=== PATIENT | female | born 2000 | race Caucasian/White ===

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

== ENCOUNTER → 2022-01-23 15:26 | Outpatient (BNVA) | payer MEDICAID, SELFPAY | PROVIDERS: PCP Nurse Practitioner; Visit Provider Registered Nurse Neonatal Intensive Care | DX: J02.9 Acute pharyngitis, unspecified (principal) | CPT/HCPCS: 87880 ==

== ENCOUNTER → 2022-02-24 07:10 | Outpatient (BNVA) | payer OTHER, MEDICAID, SELFPAY | PROVIDERS: PCP Nurse Practitioner; Visit Provider Psychiatry & Neurology Psychiatry | DX: F32.5 Major depressive disorder, single episode, in full remission (principal); F90.0 Attention-deficit hyperactivity disorder, predominantly inattentive type; F60.3 Borderline personality disorder | CPT/HCPCS: 99213 ==

== ENCOUNTER → 2022-05-16 15:36 | Outpatient (BNVA) | payer MEDICAID, SELFPAY | PROVIDERS: PCP Nurse Practitioner; Visit Provider Registered Nurse Neonatal Intensive Care | DX: M79.642 Pain in left hand (principal) | CPT/HCPCS: 73130 ==

== ENCOUNTER 2022-06-17 23:11 | Emergency (ER) | payer MEDICAID, SELFPAY ==
[2022-06-17 23:15] VITALS: BP 144/83; PULSE 88; RESP 18; TEMP 36.8; O2SAT 99; BMI 43.9
--- NOTE | 2022-06-18 02:19 | PC.NURSE ---
Pt. family up to nurse station several times to ask how long this is going to take.
== END 2022-06-18 02:26 | disposition left against medical advice (07) ==
PROVIDERS: Emergency Provider Family Medicine; PCP Nurse Practitioner
DX: Z53.21 Procedure and treatment not carried out due to patient leaving prior to being seen by health care provider (principal); R20.0 Anesthesia of skin

== ENCOUNTER 2022-06-20 15:43 | Outpatient (CLI) | payer MEDICAID, SELFPAY ==
--- NOTE | 2022-06-20 16:03 | XR_ITS ---
WS: [id number] Exam: XR wrist LT min 3V* [id number] Date/Time of Exam: 06/20/2022 4:12 PM Reason For Exam: M25.531 - Pain in right wrist There are no fractures, soft tissue swelling, or unusual calcifications. The wrist shows normal bony alignment. There is no irregularity of the bony architecture. XR/XR wrist LT min 3V* [id number] IMPRESSION: Negative left wrist.
--- NOTE | 2022-06-20 16:03 | XR_ITS ---
WS: [id number] Exam: XR wrist RT min 3V* [id number] Date/Time of Exam: 06/20/2022 4:12 PM Reason For Exam: M25.531 - Pain in right wrist There are no fractures, soft tissue swelling, or unusual calcifications. The wrist shows normal bony alignment. There is no irregularity of the bony architecture. XR/XR wrist RT min 3V* [id number] IMPRESSION: Negative right wrist.
[2022-06-20 16:51] LABS: 25 Hydroxy Vitamin D 27 ng/mL (30-100)
== END 2022-06-20 15:44 | disposition home or self-care (01) ==
PROVIDERS: PCP Nurse Practitioner; Visit Provider Nurse Practitioner
DX: R25.2 Cramp and spasm (principal); M25.531 Pain in right wrist; M25.532 Pain in left wrist
CPT/HCPCS: 36415; 73110; 82306

== ENCOUNTER 2022-07-17 06:00 | Outpatient (RCR) | payer MEDICAID, SELFPAY | END 2022-07-21 23:59 | disposition home or self-care (01) | LOC: SOT 06:00 | PROVIDERS: PCP Nurse Practitioner; Visit Provider Nurse Practitioner | DX: G56.01 Carpal tunnel syndrome, right upper limb (principal); G56.02 Carpal tunnel syndrome, left upper limb | CPT/HCPCS: 97018; 97110; 97140; 97165 ==

== ENCOUNTER 2022-07-22 06:00 | Outpatient (RCR) | payer MEDICAID, SELFPAY | END 2022-08-21 23:59 | disposition home or self-care (01) | LOC: SOT 06:00 | PROVIDERS: PCP Nurse Practitioner; Visit Provider Nurse Practitioner | DX: G56.01 Carpal tunnel syndrome, right upper limb (principal); G56.02 Carpal tunnel syndrome, left upper limb | CPT/HCPCS: 97018; 97110; 97140 ==

== ENCOUNTER 2022-08-02 16:57 | Outpatient (CLI) | payer MEDICAID, SELFPAY ==
--- NOTE | 2022-08-02 17:19 | XRR_ITS ---
PROCEDURE INFORMATION: Exam: XR Abdomen Exam date and time: 08/02/2022 5:23 PM Age: 22 years old Clinical indication: Abdominal pain; Generalized; Patient HX: Upset stomach after eating greasy food, pain in upper chest for a month. Feels like acid reflux; Additional info: R10.13 - epigastric pain TECHNIQUE: Imaging protocol: Radiologic exam of the abdomen. Views: Frontal supine view of the abdomen. 1 View. COMPARISON: CR XR lumbar spine 2-3V* [id number] 08/07/2021 6:54 PM FINDINGS: Gastrointestinal tract: Normal. No bowel dilation. Bones/joints: Unremarkable. XR/XR KUB [id number] IMPRESSION: No acute findings.
[2022-08-02 17:35] LABS: Erythrocyte Sedimentation Rate 32 mm/hr (0-15)
[2022-08-02 18:03] LABS: C Reactive Protein 34.9 mg/L (0.0-4.9); Ferritin 93 ng/mL (15-150)
[2022-08-02 18:20] LABS: 25 Hydroxy Vitamin D > 100 ng/mL (30-100)
== END 2022-08-02 16:58 | disposition home or self-care (01) ==
PROVIDERS: PCP Nurse Practitioner; Visit Provider Nurse Practitioner
DX: R10.13 Epigastric pain (principal); R23.1 Pallor; E55.9 Vitamin D deficiency, unspecified
CPT/HCPCS: 36415; 74018; 82306; 82728; 85651; 86140

== ENCOUNTER 2023-02-23 15:14 | Outpatient (CLI) | payer MEDICAID, SELFPAY ==
--- NOTE | 2023-02-23 15:25 | XR_ITS ---
WS: [id number] XR KUB [id number] REASON FOR EXAM: R10.9 - Unspecified abdominal pain FINDINGS: No free air or retroperitoneal air. Unremarkable bowel gas pattern No organomegaly or mass identified. No significant calcification seen. XR/XR KUB [id number] IMPRESSION: No acute abnormality.
[2023-02-23 16:34] LABS: Basophils # 0.1 10^3/uL (0.0-0.1); Basophils % 0.6 %; Eosinophils # 0.1 10^3/uL (0.0-0.8); Eosinophils % 0.6 %; Hematocrit 36.4 % (37.0-47.0); Hemoglobin 11.4 g/dL (11.5-15.3); Lymphocytes % 28.8 %; Mean Corpuscular HGB Conc 31.3 g/dL (30.0-36.0); Mean Corpuscular Hemoglobin 26.7 pg (28.0-34.0); Mean Corpuscular Volume 85.2 fl (81-99); Mean Platelet Volume 10.2 fL (7.4-10.4); Monocytes # 0.7 10^3/uL (0.2-0.9); Monocytes % 6.3 %; Neutrophils # 6.61 10^3/uL (1.8-8.0); Neutrophils % 63.5 %; Nucleated Red Blood Cells % 0 %; Platelet Count 365 10^3/cmm (130-400); Red Blood Count 4.27 10^6/uL (4.1-5.3); Red Cell Distribution Width 14.7 % (12.1-15.1); White Blood Count 10.4 10^3/uL (4.5-13.0)
[2023-02-23 16:37] LABS: Erythrocyte Sedimentation Rate 34 mm/hr (0-15)
[2023-02-23 16:55] LABS: Estmated Average Glucose 128; Hemoglobin A1C 6.1 % (4.0-6.0)
[2023-02-23 19:08] LABS: H. Pylori IgG Antibody Negative (Negative)
[2023-02-23 22:01] LABS: Alanine Aminotransferase 20 U/L (0-33); Albumin Level 3.9 g/dL (3.5-5.2); Alkaline Phosphatase 92 U/L (35-105); Aspartate Amino Transferase 15 U/L (0-32); Blood Urea Nitrogen 14 mg/dL (6-20); C Reactive Protein 30.8 mg/L (0.0-4.9); Calcium 9.2 mg/dL (8.5-10.5); Carbon Dioxide 22 mmol/L (22-29); Chloride 102 mmol/L (98-107); Cholesterol 164 mg/dL (0-200); Free T4 Free Thyroxine 1.12 ng/dL (0.82-1.77); Globulin 2.5 g/dL (1.3-4.6); Glomerular Filtration Rate 127.5 mL/min (90-130); Glucose 129 mg/dL (65-115); HDL Cholesterol 41 mg/dL (60-100); LDL Cholesterol Calculated 73 mg/dL (50-129); LDL HDL Ratio 1.78 RATIO (0.00-3.22); Lipase 18 U/L (13-60); Osmolality Calculated 284 mOsm/kg (285-295); Sodium 136 mmol/L (136-145); Thyroid Stimulating Hormone 2.64 uIU/mL (0.27-4.20); Total Bilirubin 0.2 mg/dL (0.15-1.2); Total Protein 6.4 g/dL (6.6-8.7); Triglycerides 248 mg/dL (0-150)
[2023-03-01 14:49] LABS: Vit D 1,25 (Oh)2, Total 51 pg/mL (18-72); Vit D2 1,25 (Oh)2 <8 pg/mL; Vit D3 1,25 (Oh)2 51 pg/mL
== END 2023-02-23 15:15 | disposition home or self-care (01) ==
PROVIDERS: PCP Nurse Practitioner; Visit Provider Nurse Practitioner
DX: Z00.00 Encounter for general adult medical examination without abnormal findings (principal); E55.9 Vitamin D deficiency, unspecified; R10.9 Unspecified abdominal pain; E11.9 Type 2 diabetes mellitus without complications
CPT/HCPCS: 36415; 74018; 80053; 80061; 81000; 82652; 83036; 83690; 84439; 84443; 85025; 85651; 86140; 86677; 87086

== ENCOUNTER 2023-03-23 07:29 | Outpatient (CLI) | payer MEDICAID, SELFPAY ==
--- NOTE | 2023-03-23 07:00 | US_ITS ---
WS: [id number] Exam: US gall bladder [id number] Date/Time of Exam: 03/23/2023 7:33 AM Reason For Exam: R10.13 - Epigastric pain The gallbladder is unremarkable. No sign of cholelithiasis. Common bile duct is not dilated and measu res 0.26 cm at greatest diameter. The liver is not enlarged measuring 16 cm at greatest dimension. No rmal-appearing right kidney measures 11.27 x 4 x 5.5 cm. The pancreas is unremarkable. The abdominal aorta is normal in caliber. The IVC is patent. Portal venous flow is hepatopedal. US/US gall bladder [id number] IMPRESSION: 1. Normal gallbladder ultrasound.
== END 2023-03-23 07:30 | disposition home or self-care (01) ==
LOC: RAD 07:31
PROVIDERS: PCP Nurse Practitioner; Visit Provider Nurse Practitioner
DX: R10.13 Epigastric pain (principal)
CPT/HCPCS: 76705

== ENCOUNTER 2023-03-26 15:45 | Outpatient (CLI) | payer MEDICAID, SELFPAY ==
--- NOTE | 2023-03-26 15:59 | XRR_ITS ---
PROCEDURE INFORMATION: Exam: XR Left Ankle Exam date and time: 03/26/2023 4:02 PM Age: 22 years old Clinical indication: Bilateral; Patient HX: Pain in both ankles for a month; Additional info: M25.572 - pain in left ankle and joints of left foot TECHNIQUE: Imaging protocol: Radiologic exam of the left ankle. Views: 3 or more views. COMPARISON: No relevant prior studies available. FINDINGS: Bones/joints: Small calcified heel spur. Soft tissues: Normal. XR/XR ankle LT min 3V* [id number] IMPRESSION: Small calcified heel spur.
--- NOTE | 2023-03-26 15:59 | XRR_ITS ---
PROCEDURE INFORMATION: Exam: XR Right Ankle Exam date and time: 03/26/2023 4:02 PM Age: 22 years old Clinical indication: Bilateral; Patient HX: Pain in both ankles for a month; Additional info: M21.171 - varus deformity, not elsewhere classified, righ. . . TECHNIQUE: Imaging protocol: Radiologic exam of the right ankle. Views: 3 or more views. COMPARISON: No relevant prior studies available. FINDINGS: Bones/joints: Normal. Soft tissues: Normal. XR/XR ankle RT min 3V* [id number] IMPRESSION: No acute findings.
== END 2023-03-26 15:46 | disposition home or self-care (01) ==
PROVIDERS: PCP Nurse Practitioner; Visit Provider Nurse Practitioner
DX: M25.572 Pain in left ankle and joints of left foot (principal); M25.571 Pain in right ankle and joints of right foot; M21.171 Varus deformity, not elsewhere classified, right ankle; M77.32 Calcaneal spur, left foot; M72.2 Plantar fascial fibromatosis; M21.172 Varus deformity, not elsewhere classified, left ankle
CPT/HCPCS: 73610

== ENCOUNTER → 2023-05-31 15:14 | Outpatient (BNVA) | payer MEDICAID, SELFPAY | PROVIDERS: PCP Nurse Practitioner; Visit Provider Nurse Practitioner Women's Health | DX: Z51.81 Encounter for therapeutic drug level monitoring (principal); Z00.00 Encounter for general adult medical examination without abnormal findings | CPT/HCPCS: 84132; 85025 ==

== ENCOUNTER 2023-06-12 15:53 | Outpatient (RCR) | payer MEDICAID, SELFPAY | END 2023-06-21 23:59 | disposition home or self-care (01) | LOC: SPT 15:53 | PROVIDERS: Visit Provider Nurse Practitioner | DX: M72.2 Plantar fascial fibromatosis (principal) | CPT/HCPCS: 97110; 97161 ==

== ENCOUNTER 2023-06-17 18:56 | Emergency (ER) | payer MEDICAID, SELFPAY ==
[2023-06-17 19:07] VITALS: BP 127/83; PULSE 83; RESP 14; TEMP 36.6; O2SAT 96
[2023-06-17 19:32] VITALS: BP 125/70; PULSE 90; RESP 16; O2SAT 97
--- NOTE | 2023-06-17 19:35 | PC.NURSE ---
Pt states that she has not been taking antibiotics for UTI and has not been seen for UTI yet. Pt is not currently experiencing gallbladder s/s.
[2023-06-17 19:37] LABS: HCG Qualitative Urine. Negative (Negative)
[2023-06-17 20:02] LABS: Urine Color Orange (Yellow)
[2023-06-17 20:03] LABS: Add Urine Culture? No; Add Urine Microscopic? YES; Bacteria Urine TRACE /hpf; Bilirubin Urine 2+ (Negative); Blood Urine Neg (Negative); Glucose Urine UA Norm (Normal); Ketones Urine Negative (Negative); Leukocyte Esterase Urine Negative (Negative); Nitrate Urine Negative (Negative); Protein Urine Neg (Negative); Squamous Epithelial Cell Urine 0-4 /hpf (0-5); Urine Appearance Clear (CLEAR); Urobilinogen Urine 8 mg/dL (Negative); pH Urine 5 (5-7)
--- NOTE | 2023-06-17 20:36 | ED_ITS ---
HPI - Female Genitourinary General: Chief complaint: Urogenital-Female Stated complaint: peeing orange, lower abdomin pain Time Seen by Provider: 06/17/23 19:29 Source: patient Mode of arrival: ambulatory Limitations: no limitations History of Present Illness: Patient presents to the emergency department today for evaluation treatment of dysuria. Patient denies any significant history of urinary tract infections but has had 1 in the past that started very similarly. She denies vaginal discharge or vaginal bleeding. She denies fevers. Patient has GI symptoms but, reports that for months now she has been having issues with her gallbladder and currently has a referral into GI specialty in [place] from her primary care doctor who is aware of her recurrent issues. Patient indicates discoloration of her urine but, did start taking Azo this morning. Review of Systems General: Reports: 10 or more systems reviewed and unremarkable except in HPI and below PFSH ED PFSH: Medical History Diabetes mellitus Diagnosed in 2020 with an elevated hemoglobin [id number] up with [facility] pediatric endocrinology in [place]-Dr. Her No pertinent past medical history Denies asthma, hypertension, seizures, DVT/PE PCP: Dr. Willett PCOS (polycystic ovarian syndrome) Diagnosed in 2020 based on oligomenorrhea with increased hair growth and acne Psychiatric care Surgical History History of tonsillectomy At the age of 19 S/P wisdom tooth extraction Performed in 2020 Family History Mother Hypertension Denies family history of Colon cancer Ovarian cancer Diabetes Heart disease Hyperlipidemia Breast cancer Uterine cancer Thyroid condition Stroke Social History Smoking and tobacco status: never smoked Household members: family Marital status: Single Highest education level completed: Associate Degree: Occupational, Technical, Vocational Program Current occupational status: employed Current gender identity: Female Physical Exam Const: COMMON NORMALS: no acute distress, average body habitus, patient oriented x3 and alert HENMT: COMMON NORMALS: normocephalic, atraumatic, hearing grossly normal bilaterally and moist oral mucous membranes HEAD & SCALP: normocephalic and atraumatic Eye: COMMON NORMALS: Equal, round and reactive pupils present, EOMs intact bilaterally and conjunctivae normal CONJUNCTIVA: Yes conjunctivae normal PUPIL: Yes Equal, round and reactive pupils present Neck/C-Spine: COMMON NORMALS: no JVD Lymph: LYMPHATIC: no lymphadenopathy noted Resp: COMMON NORMALS: normal respiratory effort, No retractions and No use of accessory muscles Cardio: COMMON NORMALS: no JVD and regular rate RATE: regular rate Extremity: COMMON NORMALS: normal to inspection, full ROM and capillary refill normal Neuro: COMMON NORMALS: patient oriented x3 SENSORIUM/ORIENTATION: Yes alert Psych: COMMON NORMALS: mental status grossly normal, cooperative, normal affect, speech normal and activity/motor behavior normal SPEECH: Yes normal speech Course Vital Signs: Vital signs: Vital Signs Temperature 97.9 F 06/17/23 20:43 Pulse Rate 97 06/17/23 20:43 Respiratory Rate 16 06/17/23 20:43 Blood Pressure 131/94 06/17/23 20:43 Pulse Oximetry 95 06/17/23 20:43 Oxygen Delivery Me thod Room Air 06/17/23 19:07 MDM - Female Medical Decision Making Patient's urinalysis shows trace bacteria but, I was concerned about the increased bilirubin. I was not aware of the patient's previous GI issues until speaking with her regarding the findings of the increased bilirubin. It is very likely that the increased bilirubin is secondary to her issues with her gallbladder but I did encourage her to mention it to her primary care physician in the morning so she can have follow-up and a recheck of her urine. Given that patient has had similar symptoms prior to onset of urinary tract infection in the past we will start treat with Macrobid however, we did also discuss the possibility of urethritis. While the patient indicates she has not been wearing tight clothing or changed any soaps or lotions recently, explained it is still possible that she has irritation of the urethral opening. She is to watch for any new onset of vaginal bleeding, vaginal discharge, abdominal pains, or fever. If these occur she needs to be seen and reevaluated. Patient verbalizes understanding and agreement to the treatment plan. Differential Diagnosis Unlikely calculus of kidney (Urethritis, urinary tract infection, pyelonephritis) Lab Data Laboratory Results HCG, Qual Negative (Negative) 06/17/23 19:20 Urine Color [place] (Yellow) A 06/17/23 19:20 Urine Appearance Clear (CLEAR) 06/17/23 19:20 Urine pH 5 (5-7) 06/17/23 19:20 Ur Specific [place] 1.020 (1.005-1.030) 06/17/23 19:20 Urine Protein Neg (Negative) 06/17/23 19:20 Urine Glucose (UA) Norm (Normal) 06/17/23 19:20 Urine Ketones Negative (Negative) 06/17/23 19:20 Urine Blood Neg (Negative) 06/17/23 19:20 Urine Nitrate Negative (Negative) 06/17/23 19:20 Urine Bilirubin 2+ (Negative) H 06/17/23 19:20 Urine Urobilinogen 8 mg/dL (Negative) H 06/17/23 19:20 Ur Leukocyte Esterase Negative (Negative) 06/17/23 19:20 Urine RBC None /hpf (0-2) 06/17/23 19:20 Urine WBC None /hpf (0-5) 06/17/23 19:20 Ur Squamous Epith Cells 0-4 /hpf (0-5) H 06/17/23 19:20 Amorphous Sediment Not Reportable 06/17/23 19:20 Urine Bacteria Trace /hpf (NONE) 06/17/23 19:20 Discharge Plan Discharge Patient Disposition: Home Clinical Impression: Dysuria Condition: Stable Prescriptions: New nitrofurantoin macrocrystal 100 mg capsule 100 mg PO BID 5 Days Qty: 10 0RF Rx Instructions: must administer with a meal/food No Action spironolactone 100 mg tablet 100 mg PO DAILY 90 Days Qty: 90 0RF norethindrone-e.estradiol-iron [5 (28)] 1.5 mg-30 mcg (21)/75 mg (7) tablet 1 tab PO DAILY Qty: 168 3RF Rx Instructions: take as directed fluoxetine 40 mg capsule 40 mg PO QAM Qty: 30 11RF (DME) new insoles See Rx Instructions .Route .MEDSUPPLY Qty: 1 0RF Rx Instructions: As directed Vyvanse 50 mg capsule 50 mg PO QAM 30 Days Qty: 30 0RF dicyclomine 10 mg capsule 10 mg PO TID 30 Days Qty: 90 0RF Discharge Orders: Discharge ED (Routine); Ordered 06/17/23 Ordered By: Manuela Salguero Referrals: Brenda Damico, [employer]- [Primary Care Provider] - Activity Restrictions/Additional Instructions: Urinalysis today reveals no concerns for significant urinary tract infection though there is some trace bacteria that is found in your specimen. Given your history of similar symptoms prior to onset of UTI, we will go ahead and initiate antibiotic treatment while we continue to culture your urine for the next couple of days. As we discussed, there is findings of bilirubin/urobilinogen in your urine sample. However, after discussion regarding months of gallbladder issues and continued evaluation through GI, I do think this finding is related to your recent gallbladder issues. However, I do think is a good idea you reach out to your primary care doctor to make them aware of this finding in your urine today. I would also encourage you to consider taking an [id number] cqmu-utd-eikcmgr PPI such as Prilosec, Nexium, or Prevacid. They are all generic off brand options of the same medication which works just as well. Take as indicated on the box. This can often help with some of the symptoms you are experiencing with the nausea and vomiting with epigastric and refluxing pain you seem to be dealing with for a while. Also, I think your GI doctor would like to know you have already tried these medications when you are able to get in for your appointment. Coding Level of Care Code ED Release Specialist for Betsey Mosley
[2023-06-17] MEDS: nitrofurantoin SR (BID) 100 mg Capsule PO (20:40)
[2023-06-17 20:41] VITALS: BP 131/94; PULSE 97; RESP 16; O2SAT 95
[2023-06-17 20:43] VITALS: BP 131/94; PULSE 97; RESP 16; TEMP 36.6; O2SAT 95
== END 2023-06-17 20:44 | disposition home or self-care (01) ==
PROVIDERS: Emergency Provider Physician Assistant; PCP Nurse Practitioner
DX: R30.0 Dysuria (principal); E11.9 Type 2 diabetes mellitus without complications
CPT/HCPCS: 81001; 81025; 99283

== ENCOUNTER 2023-06-22 06:00 | Outpatient (RCR) | payer MEDICAID, SELFPAY | END 2023-07-21 23:59 | disposition home or self-care (01) | LOC: SPT 06:00 | PROVIDERS: PCP Nurse Practitioner; Visit Provider Nurse Practitioner | DX: M72.2 Plantar fascial fibromatosis (principal) | CPT/HCPCS: 97110 ==

== ENCOUNTER 2023-08-14 13:00 | Emergency (ER) | payer MEDICAID, SELFPAY ==
--- NOTE | 2023-08-14 13:01 | XR_ITS ---
WS: [id number] Exam: XR chest 1V portable [id number] Date/Time of Exam: 08/14/2023 1:15 PM Reason For Exam: sob No priors. Findings: The lungs are clear and fully expanded. Costophrenic angles are sharp. No infiltrates. Bronchovascula r relief appears normal. Cardiac silhouette is unremarkable. Bony elements are intact. IMPRESSION: Unremarkable chest radiograph.
--- NOTE | 2023-08-14 13:08 | ECG_ITS ---
[facility] Test Date: 2023-08-14 Pat Name: Diana Hart Department: Room: Gender: Female Baking Assistant: : 2000 Requested By: Stanley Russell Order Number: [id number] Mary MD: Larry Rivas M.D. Measurements Intervals [place] Rate: 90 P: 58 ME: 181 QRS: 47 QRSD: 102 T: 55 QT: 347 QTc: 425 Interpretive Statements SINUS RHYTHM No previous ECG available for comparison Electronically Signed On 08-14-2023 16:07:07 CDT by Larry Rivas M.D. [id number]
[2023-08-14 13:11] VITALS: BP 153/84; PULSE 88; RESP 18; TEMP 36.8; O2SAT 97; BMI 44.1
--- NOTE | 2023-08-14 13:28 | W.ED.ABDPA2 ---
HPI - Abdominal Pain General: Chief Complaint: Abdominal Pain Stated Complaint: chest pain/SOB Time Seen by Provider: 08/14/23 13:02 Source: patient Mode of arrival: ambulatory Limitations: no limitations History of Present Illness: Patient is a 23-year-old female here with a complaint of epigastric/chest pain. She states she has had symptoms intermittently for a few months now. Patient states she sees a gas distribution plant operator who has her on omeprazole for possible acid reflux. She states she has not noticed an improvement of symptoms after starting the omeprazole. She states her symptoms seem to be worse after eating specific foods namely broccoli and other vegetables. She states she gets pain to her epigastric region that radiates upward into her substernal chest. She states she has nausea but has not had any episodes of emesis. She reports normal bowel movements. Denies yellowing to her skin or eyes. She is not complaining of right upper quadrant pain but states her friends/family have told her her symptoms could be related to gallbladder disease. Patient states she will often go days where she is asymptomatic. There is no exertional component. She is not short of breath and never has any difficulty breathing. MD elicited complaint: abdominal pain Pertinent past history: none Onset (ago): month(s) Pain Consistency: intermittent Location: Chest and Epigastric Severity: moderate Pain scale (0-10): 5 Quality: aching and burning Radiation: chest Migration to: no migration Exacerbating factors: eating Relieving factors: nothing Associated Symptoms: Reports nausea; Denies chills, GI cramping, diarrhea, dysuria, fever(s), hematochezia, hematemesis, melena, syncope and vomiting Related Data: Patient : No Review of Systems Const: Denies: fever(s), chills, body aches, fatigue or malaise Eyes: Denies: change in vision or blurry vision Card: Reports: chest pain; Denies: palpitations, irregular heart rhythm, edema, swelling of feet/ankles, lightheadedness, syncope, pre-syncope, dyspnea on exertion, orthopnea, leg pain with exertion or acrocyanosis Resp: Denies: dyspnea, productive cough or pain on inspiration GI: Reports: abdominal pain and nausea; Denies: vomiting, hematemesis, diarrhea, GI cramping, hematochezia or melena : Denies: flank pain or dysuria Musc: Denies: neck pain, back pain, extremity pain, extremity swelling or joint pain Skin/Breast: Denies: rash Neuro: Denies: headache(s), numbness in extremities, weakness in extremities, sensory changes or dizziness PFSH ED PFSH: Medical History Diabetes mellitus Diagnosed in 2020 with an elevated hemoglobin [id number] up with [facility] pediatric endocrinology in [place]-Dr. Her No pertinent past medical history Denies asthma, hypertension, seizures, DVT/PE PCP: Dr. Willett PCOS (polycystic ovarian syndrome) Diagnosed in 2020 based on oligomenorrhea with increased hair growth and acne Psychiatric care Surgical History History of tonsillectomy At the age of 19 S/P wisdom tooth extraction Performed in 2020 Family History Mother Hypertension Denies family history of Colon cancer Ovarian cancer Diabetes Heart disease Hyperlipidemia Breast cancer Uterine cancer Thyroid disease Stroke Social History Smoking and tobacco/nicotine status: never used tobacco/nicotine Household members: family Marital status: Single Highest education level completed: Associate Degree: Occupational, Technical, Vocational Program Current occupational status: employed Current gender identity: Female Physical Exam Const: COMMON NORMALS: no acute distress, patient oriented x3, no limitations, alert and well nourished GENERAL APPEARANCE: cooperative NUTRITIONAL APPEARANCE: obese morbidly obese (BMI of 44) ORIENTATION/CONSCIOUSNESS: Yes awake, Yes oriented to person, Yes oriented to place and Yes oriented to time HENMT: COMMON NORMALS: normocephalic and atraumatic HEAD & SCALP: normocephalic and atraumatic Eye: COMMON NORMALS: no scleral icterus Neck/C-Spine: COMMON NORMALS: full ROM, no lymphadenopathy, supple and no meningeal signs Chest: COMMONS NORMALS: normal inspection of the chest and normal palpation of entire chest wall Resp: COMMON NORMALS: normal respiratory effort and clear to auscultation bilaterally AUSCULTATION: clear to auscultation bilaterally Cardio: COMMON NORMALS: regular rate and regular rhythm RATE: regular rate RHYTHM: regular rhythm GI: COMMON NORMALS: Normal to inspection, nondistended, normoactive bowel sounds present, Soft to palpation, No hepatosplenomegaly present and no masses INSPECTION: Yes normal to inspection PALPATION: Yes Soft to palpation, Yes Tenderness to palpation present (GI) (epigastric), No Guarding due to palpation present (GI), No Rigid due to palpation and Yes No hepatosplenomegaly present : COMMON NORMALS: Yes no CVA tenderness BLADDER/KIDNEY EXAM: Yes no CVA tenderness Back/Pelvis: COMMON NORMALS: no CVA tenderness and thoracic and lumbar spine normal to inspection Extremity: COMMON NORMALS: normal to inspection GENERAL: Yes normal exam except as noted Neuro: COMMON NORMALS: patient oriented x3, moves all extremities, no focal motor deficits, no sensory deficits noted and gait normal SENSORIUM/ORIENTATION: Yes alert, Yes oriented to person, Yes oriented to place and Yes oriented to time MENINGEAL SIGNS: Yes no meningeal signs Skin: COMMON NORMALS: no rashes or lesions noted GENERAL SKIN EXAM: no rashes or lesions noted Course Vital Signs: Vital signs: Vital Signs Temperature 98.2 F 08/14/23 13:11 Pulse Rate 88 08/14/23 13:11 Respiratory Rate 18 08/14/23 13:11 Blood Pressure 153/84 08/14/23 13:11 Pulse Oximetry 97 08/14/23 13:11 Oxygen Delivery Me thod Room Air 08/14/23 13:11 MDM - Abdominal Pain Medical Decision Making Patient states she got quite a bit of relief after her GI cocktail. She appears in no acute distress. Her vital signs are stable. Blood work is unremarkable. I will switch her Omeprazole to Protonix and placed her on an H2 roby as well. Recommend she follow-up with her gas distribution plant operator. Return to ED precautions given. Lab Data 08/14/23 13:49 08/14/23 13:49 Labs/Radiology: Laboratory Results WBC 7.28 10^3/uL (3.29-11.43) 08/14/23 13:49 RBC 4.77 10^6/uL (3.85-5.65) 08/14/23 13:49 Hgb 12.60 g/dL (11.27-16.99) 08/14/23 13:49 Hct 41.1 % (36-47) 08/14/23 13:49 MCV 86.2 fl (85-98) 08/14/23 13:49 MCH 26.4 pg (27-33) L 08/14/23 13:49 MCHC 30.7 g/dL (30-55) 08/14/23 13:49 RDW 14.4 % (12.1-15.1) 08/14/23 13:49 Plt Count 347 10^3/cmm (157-399) 08/14/23 13:49 MPV 10.1 fL (7.4-10.4) 08/14/23 13:49 Neut % (Auto) 64.0 % 08/14/23 13:49 Lymph % (Auto) 26.8 % 08/14/23 13:49 [place] % (Auto) 8.2 % 08/14/23 13:49 Eos % (Auto) 0.4 % 08/14/23 13:49 Baso % (Auto) 0.5 % 08/14/23 13:49 Neut # (Auto) 4.65 10^3/uL (1.8-7.7) 08/14/23 13:49 Lymph # (Auto) 2.0 10^3/uL (0.8-4.8) 08/14/23 13:49 [place] # (Auto) 0.6 10^3/uL (0.2-0.9) 08/14/23 13:49 Eos # (Auto) 0.0 10^3/uL (0.0-0.8) 08/14/23 13:49 Baso # (Auto) 0.0 10^3/uL (0.0-0.1) 08/14/23 13:49 Nucleated RBC % (auto) 0 % 08/14/23 13:49 Nucleated RBCs # 0.0 /100WBC 08/14/23 13:49 Sodium 138 mmol/L (136-145) 08/14/23 13:49 Potassium 3.7 mmol/L (3.5-5.1) 08/14/23 13:49 Chloride 104 mmol/L (98-107) 08/14/23 13:49 Carbon Dioxide 24 mmol/L (22-29) 08/14/23 13:49 Anion Gap 13.7 (5-19) 08/14/23 13:49 BUN 13 mg/dL (6-20) 08/14/23 13:49 Creatinine 0.5 mg/dL (0.5-0.9) 08/14/23 13:49 GFR Calculation 155.7 mL/min (90-130) H 08/14/23 13:49 Glucose 116 mg/dL (65-115) H 08/14/23 13:49 Calculated Osmolality 287 mOsm/kg (285-295) 08/14/23 13:49 Calcium 9.2 mg/dL (8.5-10.5) 08/14/23 13:49 Total Bilirubin 0.2 mg/dL (0.15-1.2) 08/14/23 13:49 AST 12 U/L (0-32) 08/14/23 13:49 ALT 17 U/L (0-33) 08/14/23 13:49 Alkaline Phosphatase 82 U/L (35-105) 08/14/23 13:49 Total Protein 6.9 g/dL (6.6-8.7) 08/14/23 13:49 Albumin 4.0 g/dL (3.5-5.2) 08/14/23 13:49 Globulin 2.9 g/dL (1.3-4.6) 08/14/23 13:49 Lipase 21 U/L (13-60) 08/14/23 13:49 HCG, Qual Negative (Negative) 08/14/23 13:49 No radiology studies performed this visit Discharge Plan Discharge Patient Disposition: Home Clinical Impression: Chest pain due to GERD Condition: Stable Prescriptions: New Protonix 40 mg tablet,delayed release (DR/EC) 40 mg PO DAILY 28 Days Qty: 28 0RF Acid Controller 10 mg tablet 10 mg PO DAILY Qty: 30 0RF Discontinued omeprazole 10 mg capsule,delayed release(DR/EC) 10 mg PO DAILY No Action spironolactone 100 mg tablet 100 mg PO DAILY 90 Days Qty: 90 0RF norethindrone-e.estradiol-iron [ FE 1.5/30 (28)] 1.5 mg-30 mcg (21)/75 mg (7) tablet 1 tab PO DAILY Qty: 168 3RF Rx Instructions: take as directed fluoxetine 40 mg capsule 40 mg PO QAM Qty: 30 11RF Vyvanse 50 mg capsule 50 mg PO QAM 30 Days Qty: 30 0RF (DME) new insoles See Rx Instructions .Route .MEDSUPPLY Qty: 1 0RF Rx Instructions: As directed Discharge Orders: Discharge ED (Routine); Ordered 08/14/23 Ordered By: Kira Ernandez Referrals: Brenda Damico FNP-JARON [Primary Care Provider] - Activity Restrictions/Additional Instructions: As we discussed please follow up with her gas distribution plant operator. Coding Level of Care Code ED Clinical Informatics Spec for Betsey Mosley
[2023-08-14] MEDS: lidocaine 2% viscous 15 ML, aluminum-mag hydrox-simethicon 30 ML, sucralfate oral liq 1 GM PO (13:47)
[2023-08-14 14:02] LABS: Basophils % 0.5 %; Eosinophils % 0.4 %; Hematocrit 41.1 % (36-47); Lymphocytes % 26.8 %; Mean Corpuscular HGB Conc 30.7 g/dL (30-55); Mean Corpuscular Hemoglobin 26.4 pg (27-33); Mean Corpuscular Volume 86.2 fl (85-98); Mean Platelet Volume 10.1 fL (7.4-10.4); Monocytes # 0.6 10^3/uL (0.2-0.9); Monocytes % 8.2 %; Neutrophils # 4.65 10^3/uL (1.8-7.7); Nucleated Red Blood Cells % 0 %; Platelet Count 347 10^3/cmm (157-399); Red Blood Count 4.77 10^6/uL (3.85-5.65); Red Cell Distribution Width 14.4 % (12.1-15.1); White Blood Count 7.28 10^3/uL (3.29-11.43)
[2023-08-14 14:18] LABS: HCG, Serum Qual Negative (Negative)
[2023-08-14 14:22] LABS: Alanine Aminotransferase 17 U/L (0-33); Alkaline Phosphatase 82 U/L (35-105); Anion Gap 13.7 (5-19); Aspartate Amino Transferase 12 U/L (0-32); Blood Urea Nitrogen 13 mg/dL (6-20); Calcium 9.2 mg/dL (8.5-10.5); Carbon Dioxide 24 mmol/L (22-29); Chloride 104 mmol/L (98-107); Globulin 2.9 g/dL (1.3-4.6); Glomerular Filtration Rate 155.7 mL/min (90-130); Glucose 116 mg/dL (65-115); Lipase 21 U/L (13-60); Osmolality Calculated 287 mOsm/kg (285-295); Potassium 3.7 mmol/L (3.5-5.1); Sodium 138 mmol/L (136-145); Total Bilirubin 0.2 mg/dL (0.15-1.2); Total Protein 6.9 g/dL (6.6-8.7)
== END 2023-08-14 14:42 | disposition home or self-care (01) ==
PROVIDERS: Emergency Provider Physician Assistant; PCP Nurse Practitioner
DX: K21.9 Gastro-esophageal reflux disease without esophagitis (principal); E11.9 Type 2 diabetes mellitus without complications
CPT/HCPCS: 36415; 71045; 80053; 83690; 84703; 85025; 93005; 99285

== ENCOUNTER 2023-08-16 21:22 | Emergency (ER) | payer MEDICAID, SELFPAY ==
[2023-08-16 21:33] VITALS: BP 123/84; PULSE 75; RESP 16; TEMP 36.9; O2SAT 98; BMI 44.1
[2023-08-16 22:53] LABS: Basophils # 0.1 10^3/uL (0.0-0.1); Basophils % 0.7 %; Eosinophils # 0.1 10^3/uL (0.0-0.8); Hematocrit 43.3 % (36-47); Lymphocytes # 2.7 10^3/uL (0.8-4.8); Lymphocytes % 40.1 %; Mean Corpuscular HGB Conc 31.4 g/dL (30-55); Mean Corpuscular Volume 86.1 fl (85-98); Mean Platelet Volume 9.9 fL (7.4-10.4); Monocytes # 0.7 10^3/uL (0.2-0.9); Monocytes % 10.2 %; Neutrophils # 3.23 10^3/uL (1.8-7.7); Neutrophils % 47.9 %; Nucleated Red Blood Cells % 0 %; Platelet Count 375 10^3/cmm (157-399); Red Blood Count 5.03 10^6/uL (3.85-5.65); Red Cell Distribution Width 14.3 % (12.1-15.1); White Blood Count 6.76 10^3/uL (3.29-11.43)
--- NOTE | 2023-08-16 22:55 | CTR_ITS ---
PROCEDURE INFORMATION: Exam: CT Head With Contrast Exam date and time: 08/16/2023 11:35 PM Age: 23 years old Clinical indication: Pain; Dizziness and visual disturbance; Headache; Patient HX: RT sided PUENTE with photophobia and dizziness. ; Additional info: Headache, worst of life, photophobia, 2.5days, mostly right sided, TECHNIQUE: Imaging protocol: Computed tomography of the head with intravenous contrast. Radiation optimization: All CT scans at this facility use at least one of these dose optimization techniques: automated exposure control; mA and/or kV adjustment per patient size (includes targeted exams where dose is matched to clinical indication); or iterative reconstruction. Contrast material: OMNI 350; Contrast volume: 100 ml; Contrast route: INTRAVENOUS (IV); REPORTING DATA: Count of CT and Cardiac NM exams in prior 12 months: This patient has received 0 known CTs and 0 known cardiac nuclear medicine studies in the 12 months prior to the current study. COMPARISON: CR XR cervical spine 3V* [id number] 02/07/2020 3:32 PM RADIATION DOSE METRICS: Total DLP (mGy-cm): 2138.34 FINDINGS: Brain: Unremarkable white matter. No mass effect. No abnormal enhancing lesions. Cerebral ventricles: Unremarkable. No ventriculomegaly. Bones/joints: Unremarkable. No acute fracture. Paranasal sinuses: Visualized sinuses are unremarkable. No fluid levels. Mastoid air cells: Visualized mastoid air cells are well aerated. Soft tissues: Unremarkable. CT/CT head w con [id number] IMPRESSION: No acute intracranial abnormality.
--- NOTE | 2023-08-16 22:58 | ED_ITS ---
HPI - Headache General: Chief Complaint: Headache Stated Complaint: dizzy, senitivity to light Time Seen by Provider: 08/16/23 22:16 Source: patient Mode of arrival: ambulatory Limitations: no limitations History of Present Illness: Patient presents to the emergency department today for evaluation treatment of complaints of headache. Patient reports that about 2 and half days ago she was seen and evaluated and given a GI cocktail. She states she noticed onset of her headache sometime after that which has not improved with treatment. She states she has been taking Excedrin without noticeable improvement of her symptoms. She states headache is felt primarily deep inside the head and radiates primarily on the right side. She indicates photophobia. She has had nausea but no vomiting. She indicates some neck pain but denies fever. She states she is staying well-hydrated and denies large intake of caffeine. She does report that this is the worst headache she has ever had. No previous diagnoses of migraines. Review of Systems General: Reports: 10 or more systems reviewed and unremarkable except in HPI and below PFSH ED PFSH: Medical History Diabetes mellitus Diagnosed in 2020 with an elevated hemoglobin [id number] up with [facility] pediatric endocrinology in [place]-Dr. Her No pertinent past medical history Denies asthma, hypertension, seizures, DVT/PE PCP: Dr. Willett PCOS (polycystic ovarian syndrome) Diagnosed in 2020 based on oligomenorrhea with increased hair growth and acne Psychiatric care Surgical History History of tonsillectomy At the age of 19 S/P wisdom tooth extraction Performed in 2020 Family History Mother Hypertension Denies family history of Colon cancer Ovarian cancer Diabetes Heart disease Hyperlipidemia Breast cancer Uterine cancer Thyroid disease Stroke Social History Smoking and tobacco/nicotine status: never used tobacco/nicotine Household members: family Marital status: Single Highest education level completed: Associate Degree: Occupational, Technical, Vocational Program Current occupational status: employed Current gender identity: Female Physical Exam Const: COMMON NORMALS: no acute distress, patient oriented x3, no limitations and alert HENMT: COMMON NORMALS: normocephalic, hearing grossly normal bilaterally, external ears normal, Normal external nose present, Normal nasal mucous membranes and turbinates present, moist oral mucous membranes and oropharynx normal HEAD & SCALP: normocephalic NOSE: Normal external nose present and Normal nasal mucous membranes and turbinates present EXTERNAL EAR: Yes external ears normal Eye: COMMON NORMALS: Equal, round and reactive pupils present, EOMs intact bilaterally and conjunctivae normal CONJUNCTIVA: Yes conjunctivae normal PUPIL: Yes Equal, round and reactive pupils present Neck/C-Spine: COMMON NORMALS: full ROM and no meningeal signs Lymph: LYMPHATIC: no lymphadenopathy noted Resp: COMMON NORMALS: normal respiratory effort, No retractions and No use of accessory muscles Cardio: COMMON NORMALS: regular rate and regular rhythm RATE: regular rate RHYTHM: regular rhythm : COMMON NORMALS: Yes no CVA tenderness BLADDER/KIDNEY EXAM: Yes no CVA tenderness Back/Pelvis: COMMON NORMALS: no CVA tenderness, thoracic and lumbar spine normal to inspection and thoraco-lumbar ROM normal Extremity: COMMON NORMALS: normal to inspection, full ROM and no pedal edema NARRATIVE EXTREMITY EXAM: Patient is independently ambulatory weightbearing in the ER. Neuro: COMMON NORMALS: patient oriented x3 SENSORIUM/ORIENTATION: Yes alert MENINGEAL SIGNS: Yes no meningeal signs CRANIAL NERVES: Yes CN normal except as noted SPEECH: speech normal GAIT: Yes Normal gait present Skin: COMMON NORMALS: no rashes or lesions noted and turgor normal GENERAL SKIN EXAM: no rashes or lesions noted and turgor normal Course Vital Signs: Vital signs: Vital Signs Temperature 98.5 F 08/16/23 21:33 Pulse Rate 80 08/17/23 01:08 Respiratory Rate 16 08/17/23 00:08 Blood Pressure 125/72 08/17/23 01:08 Pulse Oximetry 98 08/17/23 01:08 MDM - Headache Medical Decision Making On initial examination, no acute findings were appreciated. Patient mostly sits in the room with her eyes closed and holds her head in her right hand. Patient is still able to answer all of her own questioning. She demonstrates full range of motion of the neck without concerns of meningeal signs. Vital signs are stable without fever, tachycardia, or hypertension. All of the patient's lab work is unremarkable. No signs of abnormal urinalysis findings. Given that she reports this is the worst headache she is ever had and, has had no headache prev iously like this, we did do a CT scan. CT scan revealed no acute abnormalities. Patient was given a migraine cocktail here in the emergency department and on rechecking the patient for reassessment of pain, patient was found to be completely asleep. I was able to wake the patient up and discussed with her that all of her laboratory and imaging today is negative for acute concerns. Patient was given antinausea medicine for home with encouragement to continue taking headache medication and stay hydrated. I gave her off work tomorrow so she can rest, hydrate, and treat. She is to have follow-up with her primary care doctor at the beginning of next week to discuss the possibility of new on set migraines. Otherwise, strict return precautions through the weekend were given for any acute worsening or change in condition. Patient verbalized understanding and agreement to the treatment plan. Differential Diagnosis Likely migraine and headache; Unlikely subarachnoid hemorrhage, meningitis or sinusitis Lab Data 08/16/23 22:46 08/16/23 22:[address] 08/16/23 22:55 IMPRESSION: No acute intracranial abnormality. Laboratory Results WBC 6.76 10^3/uL (3.29-11.43) 08/16/23 22:46 RBC 5.03 10^6/uL (3.85-5.65) 08/16/23 22:46 Hgb 13.60 g/dL (11.27-16.99) 08/16/23 22:46 Hct 43.3 % (36-47) 08/16/23 22:46 MCV 86.1 fl (85-98) 08/16/23 22:46 MCH 27.0 pg (27-33) 08/16/23 22:46 MCHC 31.4 g/dL (30-55) 08/16/23 22:46 RDW 14.3 % (12.1-15.1) 08/16/23 22:46 Plt Count 375 10^3/cmm (157-399) 08/16/23 22:46 MPV 9.9 fL (7.4-10.4) 08/16/23 22:46 Neut % (Auto) 47.9 % 08/16/23 22:46 Lymph % (Auto) 40.1 % 08/16/23 22:46 Turner % (Auto) 10.2 % 08/16/23 22:46 Eos % (Auto) 1.0 % 08/16/23 22:46 Baso % (Auto) 0.7 % 08/16/23 22:46 Neut # (Auto) 3.23 10^3/uL (1.8-7.7) 08/16/23 22:46 Lymph # (Auto) 2.7 10^3/uL (0.8-4.8) 08/16/23 22:46 Turner # (Auto) 0.7 10^3/uL (0.2-0.9) 08/16/23 22:46 Eos # (Auto) 0.1 10^3/uL (0.0-0.8) 08/16/23 22:46 Baso # (Auto) 0.1 10^3/uL (0.0-0.1) 08/16/23 22:46 Nucleated RBC % (auto) 0 % 08/16/23 22:46 Nucleated RBCs # 0.0 /100WBC 08/16/23 22:46 Sodium 139 mmol/L (136-145) 08/16/23 22:46 Potassium 3.9 mmol/L (3.5-5.1) 08/16/23 22:46 Chloride 104 mmol/L (98-107) 08/16/23 22:46 Carbon Dioxide 26 mmol/L (22-29) 08/16/23 22:46 Anion Gap 12.9 (5-19) 08/16/23 22:46 BUN 12 mg/dL (6-20) 08/16/23 22:46 Creatinine 0.6 mg/dL (0.5-0.9) 08/16/23 22:46 GFR Calculation 126.2 mL/min (90-130) 08/16/23 22:46 Glucose 99 mg/dL (65-115) 08/16/23 22:46 Calculated Osmolality 288 mOsm/kg (285-295) 08/16/23 22:46 Calcium 9.7 mg/dL (8.5-10.5) 08/16/23 22:46 Total Bilirubin 0.2 mg/dL (0.15-1.2) 08/16/23 22:46 AST 13 U/L (0-32) 08/16/23 22:46 ALT 18 U/L (0-33) 08/16/23 22:46 Alkaline Phosphatase 93 U/L (35-105) 08/16/23 22:46 Total Protein 7.4 g/dL (6.6-8.7) 08/16/23 22:46 Albumin 4.4 g/dL (3.5-5.2) 08/16/23 22:46 Globulin 3.0 g/dL (1.3-4.6) 08/16/23 22:46 HCG, Qual Negative (Negative) 08/17/23 00:01 Urine Color Yellow (Yellow) 08/17/23 00:01 Urine Appearance Clear (CLEAR) 08/17/23 00:01 Urine pH 5 (5-7) 08/17/23 00:01 Ur Specific [place] 1.015 (1.005-1.030) 08/17/23 00:01 Urine Protein Neg (Negative) 08/17/23 00:01 Urine Glucose (UA) Norm (Normal) 08/17/23 00:01 Urine Ketones Negative (Negative) 08/17/23 00:01 Urine Blood Neg (Negative) 08/17/23 00:01 Urine Nitrate Negative (Negative) 08/17/23 00:01 Urine Bilirubin Neg (Negative) 08/17/23 00:01 Urine Urobilinogen Neg mg/dL (Negative) 08/17/23 00:01 Ur Leukocyte Esterase Negative (Negative) 08/17/23 00:01 All radiology interpretation(s) finalized by discharge Discharge Plan Discharge Patient Disposition: Home Clinical Impression: Headache Condition: Stable Prescriptions: New ondansetron 4 mg tablet,disintegrating 4 mg PO Q8H 5 Days Qty: 15 0RF No Action spironolactone 100 mg tablet 100 mg PO DAILY 90 Days Qty: 90 0RF norethindrone-e.estradiol-iron [ ()] 1.5 mg-30 mcg (21)/75 mg (7) tablet 1 tab PO DAILY Qty: 168 3RF Rx Instructions: take as directed fluoxetine 40 mg capsule 40 mg PO QAM Qty: 30 11RF Vyvanse 50 mg capsule 50 mg PO QAM 30 Days Qty: 30 0RF (DME) new insoles See Rx Instructions .Route .MEDSUPPLY Qty: 1 0RF Rx Instructions: As directed Protonix 40 mg tablet,delayed release (DR/EC) 40 mg PO DAILY 28 Days Qty: 28 0RF Acid Controller 10 mg tablet 10 mg PO DAILY Qty: 30 0RF Discharge Orders: Discharge ED (Routine); Ordered 08/17/23 Ordered By: Manuela Salguero Discharge Diet: Usual diet Discharge Activity: Increase activity as tolerated Patient Instructions: Headache - Migraine (Adult), Acute Headache (ED) Activity Restrictions/Additional Instructions: Imaging today revealed no signs of acute abnormalities intracranially. Appears to be no signs of injury and no signs of masses or lesions. Your lab work is completely normal as well as your urinalysis. I have provided you antinausea medication. I encourage you to continue to stay well-hydrated and rest. You may also apply a cold pack to the base of your skull or forehead to help with discomfort. We recommend resting in cool, quiet, and dark environments. Continue to take Excedrin Migraine but, would also encourage you to take a 25 mg Benadryl at the same time to help enhance the effects. If you do not have any noticeable improvement in your headache over the next day or 2 or, have acute worsening including profuse vomiting, change or loss of vision or severe dizziness without ability to walk you need to be seen and reevaluated here in the emergency department. Otherwise, we do recommend a follow-up appointment with your primary care doctor at the beginning of the week to discuss the possibility of new onset migraines. Stand Alone Forms: Work/School Release Coding Level of Care Code ED Blueprint Clerk for Betsey Mosley
[2023-08-16 23:08] LABS: Alanine Aminotransferase 18 U/L (0-33); Albumin Level 4.4 g/dL (3.5-5.2); Alkaline Phosphatase 93 U/L (35-105); Anion Gap 12.9 (5-19); Aspartate Amino Transferase 13 U/L (0-32); Blood Urea Nitrogen 12 mg/dL (6-20); Calcium 9.7 mg/dL (8.5-10.5); Carbon Dioxide 26 mmol/L (22-29); Chloride 104 mmol/L (98-107); Glomerular Filtration Rate 126.2 mL/min (90-130); Glucose 99 mg/dL (65-115); Osmolality Calculated 288 mOsm/kg (285-295); Potassium 3.9 mmol/L (3.5-5.1); Sodium 139 mmol/L (136-145); Total Bilirubin 0.2 mg/dL (0.15-1.2); Total Protein 7.4 g/dL (6.6-8.7)
[2023-08-16] MEDS: iohexol 350 mg/mL 500 mL Btl (per mL) IV (23:40)
[2023-08-16] MEDS: sodium chloride 0.9% 1,000 ML 999 ML IV (23:51)
[2023-08-16] MEDS: metoclopramide 5 mg/mL SDV 2 mL 10 MG IVP (23:58)
[2023-08-17] MEDS: diphenhydrAMINE 50 mg/mL SDV 1mL IVP
[2023-08-17] MEDS: ketorolac 30 mg/mL INJ IVP (00:02)
[2023-08-17 00:08] VITALS: BP 148/92; PULSE 68; RESP 16; O2SAT 95
[2023-08-17 00:19] LABS: Add Urine Microscopic? NO; Charge for UA Resulting for Rev
[2023-08-17 00:22] LABS: Bilirubin Urine Neg (Negative); Blood Urine Neg (Negative); Glucose Urine UA Norm (Normal); Ketones Urine Negative (Negative); Leukocyte Esterase Urine Negative (Negative); Nitrate Urine Negative (Negative); Protein Urine Neg (Negative); Specific Gravity, Urine 1.015 (1.005-1.030); Urine Appearance Clear (CLEAR); Urine Color Yellow (Yellow); Urobilinogen Urine Neg (Negative); pH Urine 5 (5-7)
[2023-08-17 00:25] LABS: HCG Qualitative Urine. Negative (Negative)
[2023-08-17 01:08] VITALS: BP 125/72; PULSE 80; O2SAT 98
== END 2023-08-17 01:10 | disposition home or self-care (01) ==
PROVIDERS: Emergency Provider Physician Assistant
DX: R51.9 Headache, unspecified (principal); E11.9 Type 2 diabetes mellitus without complications
CPT/HCPCS: 36415; 70460; 80053; 81003; 81025; 85025; 96374; 96375; 99285; J1200; J1885; J2765; J7030; Q9967

== ENCOUNTER 2023-11-19 21:45 | Emergency (ER) | payer MEDICAID, SELFPAY ==
[2023-11-19 21:58] VITALS: BP 142/85; PULSE 94; RESP 14; TEMP 36.7; O2SAT 99
[2023-11-19 23:03] LABS: HCG Qualitative Urine. Negative (Negative)
[2023-11-19 23:35] LABS: Add Urine Microscopic? YES; Bilirubin Urine Neg (Negative); Blood Urine 3+ (Negative); Glucose Urine UA Norm (Normal); Ketones Urine 1+ (Negative); Leukocyte Esterase Urine 2+ (Negative); Nitrate Urine Negative (Negative); Protein Urine 3+ (Negative); RBC Urine >100 /hpf (0-2); Squamous Epithelial Cell Urine 0-4 /hpf (0-5); Urine Appearance Cloudy (CLEAR); Urine Color Red (Yellow); Urobilinogen Urine Neg (Negative); WBC Urine 40-55 /hpf (0-5); pH Urine 6 (5-7)
[2023-11-19 23:36] LABS: Add Urine Culture? Yes; Bacteria Urine 2+ /hpf
[2023-11-20] MEDS: nitrofurantoin SR (BID) 100 mg Capsule PO (00:19)
--- NOTE | 2023-11-20 00:19 | PC.NURSE ---
Macrobid was given to pt before dc'd my provider. I spoke with provider, verbal order to not give the other antibiotic at this time
--- NOTE | 2023-11-20 00:28 | W.ED.FEMALGU ---
HPI - Female Genitourinary General: Chief complaint: Urogenital-Female Stated complaint: Back Pain\Hurts to Urinate Time Seen by Provider: 11/19/23 22:07 Source: patient Mode of arrival: ambulatory Limitations: no limitations History of Present Illness: Patient presents emergency department today for evaluation treatment of low back pain and dysuria. Patient states she had low back pain starting couple of days ago but thought it was because of work. However, she has continued to have low back pain and today due to having dysuria. She also says her urine has a slight red tinge to it. She has not had vomiting, mid back pain, or fever. Chart review shows previous urine cultures without bacterial growth to refer to. Review of Systems General: Reports: 10 or more systems reviewed and unremarkable except in HPI and below PFSH ED PFSH: Medical History Psychiatric care Diabetes mellitus Diagnosed in 2020 with an elevated hemoglobin [id number] up with [facility] pediatric endocrinology in [place]-Dr. Her PCOS (polycystic ovarian syndrome) Diagnosed in 2020 based on oligomenorrhea with increased hair growth and acne No pertinent past medical history Denies asthma, hypertension, seizures, DVT/PE PCP: Dr. Willett Surgical History S/P wisdom tooth extraction Performed in 2020 History of tonsillectomy At the age of 19 Family History Mother Hypertension Denies family history of Colon cancer Ovarian cancer Diabetes Heart disease Hyperlipidemia Breast cancer Uterine cancer Thyroid disease Stroke Social History Smoking and tobacco/nicotine status: never used tobacco/nicotine Household members: family Marital status: Single Highest education level completed: Associate Degree: Occupational, Technical, Vocational Program Current occupational status: employed Current gender identity: Female Physical Exam Const: COMMON NORMALS: no acute distress, average body habitus, patient oriented x3 and alert OTHER: Patient is pleasant, social. Answers her own history. Vital signs stable. HENMT: COMMON NORMALS: normocephalic, atraumatic, hearing grossly normal bilaterally and moist oral mucous membranes HEAD & SCALP: normocephalic and atraumatic Eye: COMMON NORMALS: Equal, round and reactive pupils present, EOMs intact bilaterally and conjunctivae normal CONJUNCTIVA: Yes conjunctivae normal PUPIL: Yes Equal, round and reactive pupils present Neck/C-Spine: COMMON NORMALS: no JVD Lymph: LYMPHATIC: no lymphadenopathy noted Resp: COMMON NORMALS: normal respiratory effort, No retractions and No use of accessory muscles Cardio: COMMON NORMALS: no JVD and regular rate RATE: regular rate Back/Pelvis: COMMON NORMALS: thoraco-lumbar ROM normal Extremity: COMMON NORMALS: normal to inspection, full ROM and capillary refill normal OTHER: Patient is independently ambulatory and weightbearing here in the emergency department. Neuro: COMMON NORMALS: patient oriented x3 SENSORIUM/ORIENTATION: Yes alert Psych: COMMON NORMALS: mental status grossly normal, cooperative, normal affect, speech normal and activity/motor behavior normal SPEECH: Yes normal speech Course Vital Signs: Vital signs: Vital Signs Temperature 98.0 F 11/19/23 21:58 Pulse Rate 94 11/19/23 21:58 Respiratory Rate 14 11/19/23 21:58 Blood Pressure 142/85 11/19/23 21:58 Pulse Oximetry 99 11/19/23 21:58 Oxygen Delivery Me thod Room Air 11/19/23 21:58 MDM - Female Medical Decision Making Patient urinalysis is consistent with urinary tract infection. We will culture her urine over the next 48 hours to determine proper antibiotic coverage. Until then, we will initiate treatment here in the emergency department. Originally, I had ordered Macrobid to be given however, when I went to send a prescription to the pharmacy I noticed that Macrobid was not on formulary. When I went back to try and switch out the Macrobid to be given here in the emergency department over to Omnicef, nursing indicated they had already provided the medication in the room. I had also already sent Omnicef to the pharmacy at that time. Patient can take the Macrobid provided from the emergency department tonight and lease picker Omnicef to continue in the morning. She is encouraged to continue pushing her fluids and to carefully monitor her symptoms. She should be seen and reevaluated for any change or worsening in recommend a recheck urinalysis after course of antibiotics is complete to assure full resolution of infection. Patient verbalizes understanding and agreement to the treatment plan. Differential Diagnosis Likely abdominal pain; Unlikely acute appendicitis, calculus of kidney, constipation, diverticulitis, gastroenteritis, pancreatitis or small bowel obstruction Lab Data Laboratory Results HCG, Qual Negative (Negative) 11/19/23 22:56 Urine Color Red (Yellow) A 11/19/23 22:56 Urine Appearance Cloudy (CLEAR) A 11/19/23 22:56 Urine pH 6 (5-7) 11/19/23 22:56 Ur Specific [place] 1.010 (1.005-1.030) 11/19/23 22:56 Urine Protein 3+ (Negative) H 11/19/23 22:56 Urine Glucose (UA) Norm (Normal) 11/19/23 22:56 Urine Ketones 1+ (Negative) H 11/19/23 22:56 Urine Blood 3+ (Negative) H 11/19/23 22:56 Urine Nitrate Negative (Negative) 11/19/23 22:56 Urine Bilirubin Neg (Negative) 11/19/23 22:56 Urine Urobilinogen Neg mg/dL (Negative) 11/19/23 22:56 Ur Leukocyte Esterase 2+ (Negative) H 11/19/23 22:56 Urine RBC >100 /hpf (0-2) H 11/19/23 22:56 Urine WBC 40-55 /hpf (0-5) H 11/19/23 22:56 Ur Squamous Epith Cells 0-4 /hpf (0-5) H 11/19/23 22:56 Amorphous Sediment Not Reportable 11/19/23 22:56 Urine Bacteria 2+ /hpf (NONE) H 11/19/23 22:56 No radiology studies performed this visit Discharge Plan Discharge Patient Disposition: Home Clinical Impression: Urinary tract infection Condition: Stable Prescriptions: New cefdinir 300 mg capsule 300 mg PO BID 10 Days Qty: 20 0RF No Action spironolactone 100 mg tablet 100 mg PO DAILY 90 Days Qty: 90 0RF norethindrone-e.estradiol-iron [June FE 1.5/30 (28)] 1.5 mg-30 mcg (21)/75 mg (7) tablet 1 tab PO DAILY Qty: 168 3RF Rx Instructions: take as directed omeprazole 40 mg capsule,delayed release(DR/EC) 40 mg PO DAILY fluoxetine 40 mg capsule 40 mg PO QAM Qty: 30 11RF (DME) new insoles See Rx Instructions .Route .MEDSUPPLY Qty: 1 0RF Rx Instructions: As directed atomoxetine 80 mg capsule 80 mg PO QAM Qty: 30 5RF Discharge Orders: Discharge ED (Routine); Ordered 11/20/23 Ordered By: Manuela Salguero Discharge Diet: Usual diet Discharge Activity: Increase activity as tolerated Patient Instructions: Urinary Tract Infection in Women (DC) Activity Restrictions/Additional Instructions: Urinalysis today does show signs of urinary tract infection with bacteria, white blood cells, and blood. We are sending the specimen to the lab over the next 48 hours to be cultured. This way we can determine the exact bacterial cause and assure the proper antibiotic coverage. Still, it can take a couple days for these results to post and I would like to start treatment tonight with antibiotics rather than wait as symptoms can get worse. We provided your first dose of medication tonight and the rest has been sent to your preferred pharmacy to be picked up and taken in the morning. Continue to increase your clear fluids. Watch for any sudden spiking fever, vomiting without ability to take medication or tolerate fluids, or pain in your mid back region. If these agree need to be seen and reevaluated. Otherwise, if we need to change her antibiotics we will notify you. After you finish your course of antibiotics would recommend having your urine rechecked by your primary care doctor to assure resolution of all infectious findings. Coding Level of Care Code ED Material Attendant for Betsey Mosley
== END 2023-11-20 00:25 | disposition home or self-care (01) ==
PROVIDERS: Emergency Medicine; Emergency Provider Physician Assistant
DX: N39.0 Urinary tract infection, site not specified (principal); E11.9 Type 2 diabetes mellitus without complications
CPT/HCPCS: 81001; 81025; 87077; 87086; 87186; 99283

== ENCOUNTER → 2023-12-08 18:12 | Outpatient (BNVA) | payer MEDICAID, SELFPAY | PROVIDERS: Visit Provider Emergency Medicine | DX: Z20.828 Contact with and (suspected) exposure to other viral communicable diseases (principal) | CPT/HCPCS: 87400 ==

== ENCOUNTER → 2023-12-13 14:08 | Outpatient (BNVA) | payer MEDICAID, SELFPAY | PROVIDERS: Visit Provider Nurse Practitioner | DX: J02.9 Acute pharyngitis, unspecified (principal) | CPT/HCPCS: 87880 ==

== ENCOUNTER → 2023-12-28 14:41 | Outpatient (BNVA) | payer MEDICAID, SELFPAY | PROVIDERS: Visit Provider Nurse Practitioner Women's Health | DX: E28.2 Polycystic ovarian syndrome (principal); L68.0 Hirsutism | CPT/HCPCS: 84132 ==

== ENCOUNTER → 2024-02-01 14:54 | Outpatient (BNVA) | payer MEDICAID, SELFPAY | PROVIDERS: Visit Provider Registered Nurse Neonatal Intensive Care | DX: J02.9 Acute pharyngitis, unspecified (principal) | CPT/HCPCS: 87880 ==

== ENCOUNTER → 2024-02-28 15:04 | Outpatient (BNVA) | payer MEDICAID, SELFPAY | PROVIDERS: Visit Provider Nurse Practitioner Women's Health | DX: Z01.419 Encounter for gynecological examination (general) (routine) without abnormal findings (principal) | CPT/HCPCS: 88175 ==

== ENCOUNTER → 2024-03-15 14:02 | Outpatient (BNVA) | payer MEDICAID, SELFPAY | PROVIDERS: Visit Provider Emergency Medicine | DX: J02.9 Acute pharyngitis, unspecified (principal); J06.9 Acute upper respiratory infection, unspecified | CPT/HCPCS: 87071; 87400; 87880 ==

== ENCOUNTER → 2025-03-08 15:00 | Outpatient (BNVA) | payer MEDICAID, SELFPAY | PROVIDERS: Visit Provider Nurse Practitioner | DX: R39.9 Unspecified symptoms and signs involving the genitourinary system (principal) | CPT/HCPCS: 81000; 87086 ==